=== PATIENT | male | born 1960 | race Caucasian/White ===

== ENCOUNTER 2019-12-24 20:56 | Emergency (ER) | payer BC, SELFPAY ==
[2019-12-24 20:58] VITALS: BP 169/100; PULSE 118; RESP 16; TEMP 36.7; O2SAT 98; BMI 30.2
--- NOTE | 2019-12-24 21:21 | CT_ITS ---
STUDY: CT BRAIN WITHOUT CONTRAST REASON FOR EXAM: Male, 59 years old. SEIZURE WHILE WALKING TONIGHT, HX MS RADIATION DOSAGE (If Supplied By Facility): CTDIvol = ( 44.99 ) mGy, DLP = ( 880.47 ) mGycm TECHNIQUE: Transaxial CT imaging of the brain was performed without administration of intravenous contrast material. Individualized dose optimization techniques were used for this CT. COMPARISON: No relevant priors. FINDINGS: Normal soft tissue structures. Normal calvarium. There is moderate cerebral atrophy with widening of the extra-axial spaces and ventricular dilatation. There are areas of decreased attenuation within the white matter tracts of the supratentorial brain, consistent with microvascular disease changes. There are small punctate calcifications of the basal ganglia which are seen in the aging brain as a normal variant. Normal brainstem. There is mild cerebellar atrophy. There is no intracranial hemorrhage. There are no findings of an acute ischemic infarction. Normal visualized paranasal sinuses. CT/Brain/Head without Contrast IMPRESSION: Moderate atrophy. No visualized hemorrhage. Given clinical history recommend consideration for follow-up MRI. Electronically Signed: Allyson Espitia MD at 22:07 EST Tel , Service support ,
[2019-12-24] MEDS: LORazepam 2 MG/ML Syringe 1 MG IV (21:33)
[2019-12-24 21:42] LABS: Absolute Lymphocyte Count 3.12 X10^3/uL (0.83-4.51); Absolute Neutrophil Count 3.5 X10^3/uL (2.0-7.7); Basophil# 0.11 X10^3/uL; Basophil% 1.4 % (0-1); Eosinophil# 0.15 X10^3/uL; Hematocrit 44.5 % (40-54); Hemoglobin 15.2 g/dL (13.0-16.5); Lymphocyte # 3.12 X10^3/ul (4.0); Lymphocyte % 41.1 % (19-41); Mean Corp Hgb Conc 34.2 g/dL (32-36); Mean Corpuscular Hgb 28.4 pg (27.0-32.0); Mean Corpuscular Volume 83.2 fL (80-94); Mean Platelet Vol. 11.7 fl (6.2-12.0); Monocyte# 0.73 X10^3/uL; Monocyte% 9.6 % (0-10); NRBC Flagged by Analyzer 0 % (0-5); Neutrophil # 3.46 X10^3/uL (2.7-7.7); Neutrophil % 45.5 % (47-70); Platelet Count 250 K/mm3 (150-450); RBC Distribution Width SD 36.3 fl (35.1-43.9); Red Blood Count 5.35 M/mm3 (4.6-6.2); White Blood Count 7.6 K/mm3 (4.4-11.0)
[2019-12-24 21:48] LABS: Anion Gap 15 (5-15); BUN 12 mg/dL (7-18); BUN/Creat Ratio 8.6 RATIO (10-20); Calcium,Total 8.9 mg/dL (8.5-10.1); Chloride 101 mmol/L (98-107); Creatinine, Serum 1.39 mg/dL (0.70-1.30); EST Glomerular Filtration Rate 56 mL/min (>60); Est Glom Filt Rate - Afr Amer 67 mL/min (>60); Estimated Creatinine Clearance 60.94 ml/min; Glucose 426 mg/dL (74-106); Potassium 3.7 mmol/L (3.5-5.1); Sodium Level 135 mmol/L (136-145)
[2019-12-24 22:00] VITALS: BP 141/92; PULSE 90; RESP 16; O2SAT 95
--- NOTE | 2019-12-24 22:38 | ED.VISSUMM ---
- ER Visit Summary Date of Service: 12/24/19 Chief Complaint: Seizure History of Present Illness: The patient is a 59 M who has a neurologist named Dr. Santos in [place]. His primary care physician is Dr. Marlow. He was at a basketball game [facility] [facility]. When walking out the patient had a seizure. He fell forward and had approximately 15 minutes of tonic-clonic activity was up extremities bilaterally. He was foaming at the mouth. He did bite his tongue. He was incontinent of urine. He clearly is having a postictal episode. He is never had this before. Patient complains of a headache that is 2 out of 10 in severity. He denies any other complaints. He does have a history of MS. Physical Examination: Vitals: Stable. Afebrile. General: Well-nourished and well-developed. Head: Normocephalic atraumatic. Neck: Supple, no lymphadenopathy. No JVD. Nontender. Cardiovascular: Regular rate and rhythm. No murmurs. Respiratory: No respiratory distress. Clear to auscultation bilaterally. Abdominal: Soft, nontender, nondistended, normal bowel sounds. No guarding, rebound, or peritoneal signs. Back: Nontender. Extremities: Nontender, no edema. Skin: Normal color, no rash. Neurologic: Alert and oriented ?3. Cranial nerves II through XII are intact. Normal strength and sensation. Psych: Normal affect. Test Results: CBC shows 7 neutrophils 46 lymphocytes 41. Chem-7 shows a sodium 135, CO2 of 19 which I suspect is from the seizure activity glucose of 426 and creatinine 1.39. Clinical Impression(s) from Imaging Studies Brain CT 12/24/19 21:21 IMPRESSION: Moderate atrophy. No visualized hemorrhage. Given clinical history recommend consideration for follow-up MRI. Electronically Signed: Allyson Espitia MD at 22:07 EST Tel , Service support , Emergency Department Course and Treatment: Patient had an IV placed. Is given a milligram of Ativan IV. He was given 500 mg of metformin p.o. He is resting comfortably and would like to go home. Treatment Plan: Discussed the patient that he cannot drive again until he is cleared by his neurologist. He does not have a history of diabetes. However, he reports that his primary care physician has been watching this. He will be placed on metformin 500 mg p.o. twice daily and instructed to follow-up his neurologist and primary care physician as soon as possible. Return to the hospital for further seizure activity or any other concerns. Disposition: To home in improved and stable condition. Impression: 1. Seizure, new onset. 2. Hyperglycemia. This note was generated with [employer] software. It may contain incorrect words, spelling, and punctuation that were not noted in review of the chart prior to signing ED Disposition - Plan for ED Patient: Disposition: Home or Assisted Living Instructions: SEIZURE, New Onset, Unk Cause [Adult], HYPERGLYCEMIA, NEW ONSET (Diabetes Suspected) Prescriptions: Metformin HCl 500 mg PO BID #60 tab Prescription Printed Referrals: Doctor,Your [STAFF PHYSICIAN] - As soon as possible Additional Instructions: Do NOT drive until cleared by your Neurologist.
[2019-12-24] MEDS: metFORMIN HCl 500 MG Tablet PO (22:52)
[2019-12-24 22:55] VITALS: BP 135/87; PULSE 75; RESP 16; O2SAT 95
== END 2019-12-24 23:04 | disposition home or self-care (01) ==
LOC: ED 21:32
PROVIDERS: Emergency Provider Emergency Medicine
DX: R56.9 Unspecified convulsions (principal); R73.9 Hyperglycemia, unspecified; G35 Multiple sclerosis
CPT/HCPCS: 36415; 70450; 80048; 85025; 96374; 99285